=== PATIENT | female | born 1955 | race Caucasian/White ===

== ENCOUNTER 2019-01-15 12:03 | Emergency (ER) | payer MEDICAID ==
[~2019-01-15] VITALS: Ht 172.7 cm; Wt 98.2 kg
--- NOTE | 2019-01-15 12:34 | NUR ---
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
[2019-01-15] MEDS ORDERED: CYCL-259 PO (12:51)
[2019-01-15] MEDS ORDERED: GABA300C10 PO (12:51)
[2019-01-15] MEDS ORDERED: POTASSIUM (12:53)
[2019-01-15] MEDS ORDERED: ATORVASTATIN (12:53)
[2019-01-15] MEDS ORDERED: FURO-93 PO (12:53)
[2019-01-15] MEDS ORDERED: CALCIUM PO (12:53)
--- NOTE | 2019-01-15 12:56 | NUR ---
PT TO ED FOR COUGT WITH LE SPUTUM X1 WEEK AND SHOULDER PAIN. PT CONNECTED TO MONITORS. ROSINA RAUSCH TO BS FOR ASSESSMENT. AWATIING ORDERS.
[2019-01-15] MEDS ORDERED: HYDROcodone/APAP 5/325 TABLET PO ONE (13:00)
[2019-01-15] MEDS ORDERED: HYDROcodone/APAP 5/325 TABLET ONE (13:02)
[2019-01-15 13:24] VITALS: BP 126/59
--- NOTE | 2019-01-15 13:24 | NUR ---
PT RESTING IN ROOM. VSS. PT REPORTS DECREASE IN PAIN AFTER MEDICATION ADMINISTRATION. AWATIING RESULTS.
== END 2019-01-15 14:48 | disposition home or self-care (01) ==
LOC: ED 14:30
DX: R05 Cough (principal); M19.011 Primary osteoarthritis, right shoulder; R06.02 Shortness of breath; Z85.3 Personal history of malignant neoplasm of breast; F17.200 Nicotine dependence, unspecified, uncomplicated
CPT/HCPCS: 71046; 93005; 99283